=== PATIENT | female | born 1975 | race Caucasian/White ===

== ENCOUNTER 2017-06-18 10:32 | Day surgery (SDC) | payer MEDICARE, MEDICAID ==
[~2017-06-18] VITALS: Ht 157.5 cm; Wt 50.0 kg
[2017-06-18 11:17] VITALS: BP 107/70
[2017-06-18] MEDS ORDERED: LIDOCAINE 2%, 20ML ONE (11:43)
[2017-06-18] MEDS ORDERED: LIDOCAINE 2% 100MG/5ML SYRINGE ONE (11:43)
== END 2017-06-18 12:32 ==
LOC: CACL 10:32
PROVIDERS: ATTEND Internal Medicine Cardiovascular Disease
DX: R55 Syncope and collapse (principal); I10 Essential (primary) hypertension; Z88.1 Allergy status to other antibiotic agents; Z88.0 Allergy status to penicillin; Z88.8 Allergy status to other drugs, medicaments and biological substances
CPT/HCPCS: 33282; C1764; J3490

== ENCOUNTER → 2017-12-16 | Outpatient (CLI) | payer MEDICARE, MEDICAID | END | disposition home or self-care (01) | LOC: CFH 12:26 | PROVIDERS: ATTEND Specialist | DX: M81.0 Age-related osteoporosis without current pathological fracture (principal); Z78.0 Asymptomatic menopausal state; Z88.0 Allergy status to penicillin; Z88.2 Allergy status to sulfonamides | CPT/HCPCS: 77080 ==